=== PATIENT | female | born 2005 | race American Indian/Alaskan Native ===

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

== ENCOUNTER 2025-01-24 05:07 | Emergency (ER) | payer SELFPAY ==
[2025-01-24 05:15] VITALS: BP 139/67; PULSE 85; RESP 16; TEMP 36.4; O2SAT 96; BMI 17.2
--- NOTE | 2025-01-24 05:17 | DI.RAD.S_ITS ---
PROCEDURE: XR CHEST 1V INDICATIONS: cough TECHNIQUE: One view of the chest was acquired. COMPARISON: None. FINDINGS: Surgical changes and devices: None. Lungs and pleura: Lungs are clear. No pleural effusions or pneumothorax. Mediastinum: Mediastinal contours appear normal. Heart size is normal. Bones and chest wall: No suspicious bony lesions. Overlying soft tissues appear unremarkable. IMPRESSION: No consolidations. Dictated by: Gretel John M.D. on 01/24/2025 at 9:22 Approved by: Gretel John M.D. on 01/24/2025 at 9:22
--- NOTE | 2025-01-24 05:17 | ED_ITS ---
HPI - Nausea/Vomiting/Diarrhea General Chief complaint: Nausea/Vomiting/Diarrhea Stated complaint: Vomiting, SOB Time Seen by Provider: 01/24/25 05:08 History of Present Illness HPI Narrative: 19-year-old female without any significant past medical history comes into the ED from home for evaluation of nasal congestion cough and nausea. She states that she was feeling fine and woke up this morning having difficulty breathing through her nose. She adamantly denies any actual chest pain chest tightness or difficulty breathing through her mouth, she states that she feels difficulty breathing only through her nose and that caused her to be concern. She also states that she had episode of nausea but no vomiting. She states that family members at home have similar symptoms, does endorse a small cough that also started with her nasal congestion that started this morning. At time of evaluation patient well-appearing nontoxic she is not complaining of any actual headache visual disturbances chest pain shortness of breath abdominal pain or any other GI/ symptoms time. Patient states that she is currently on her menstrual cycle. Related Data Previous Rx's Medication Instructions Recorded doxycycline hyclate 100 mg capsule 100 mg PO BID 5 days #10 caps 01/24/25 oxymetazoline 0.05 % nasal mist 2 spray intranasal Q12H PRN nasal 01/24/25 (Afrin (oxymetazoline)) congestion 3 days #15 mL Allergies Allergy/AdvReac Type Severity Reaction Status Date / Time No Known Drug Allergies Allergy Verified 08/29/22 15:12 Review of Systems Review of Systems Narrative: General: Denies fever, chills, weight loss HEENT: Positive nasal congestion, Denies headache, eye drainage, eye i rritation, head trauma, sore throat, voice change Cardiovascular: Denies any chest pain, palpitations, tachycardia Respiratory: Denies any shortness of breath, cough, wheeze, stridor GI/: Positive nausea, Denies any abdominal pain,vomiting, diarrhea, bright red blood per rectum, melanotic stools, urinary frequency, urinary retention, dysuria, hematuria MSK: Denies any joint pain, muscle pains, swelling Skin: Denies any rashes, lesions, discoloration Neuro: Denies any headache, lightheadedness, dizziness, fainting, weakness Psych: Denies SI/HI Patient History Social History Smoking Status: Never smoker Exam Narrative Exam Narrative: General: Cooperative, comfortable, well-developed, not in acute distress HEENT: Normocephalic, atraumatic, PERRLA, normal sclera, eyelids normal, Neck: Active full range of motion, atraumatic Chest: Normal to inspection, negative crepitus, no overlying erythema ecchymosis Respiratory: Normal respiratory effort, not in acute respiratory distress, clear to auscultation bilaterally negative cough, wheeze, tachypnea, rhonchi, rales Cardiology: Regular rate rhythm negative gallop, murmur, rubs GI/: Normal to inspection, soft, nonrigid, no tenderness to palpation, exam deferred MSK: Full range of active range of motion of all 4 extremities, atraumatic Skin: No rashes lesions noted Neuro: Alert awake oriented x3, moves all 4 extremities spontaneously, cranial nerves intact, able to answer all questions appropriately follows commands appropriately Psych: Cooperative, negative suicidal or homicidal ideations Initial Vital Signs Initial Vital Signs: Vital Signs Temperature 97.6 F 01/24/25 05:15 Pulse Rate 85 01/24/25 05:15 Respiratory Rate 16 01/24/25 05:15 Blood Pressure 139/67 01/24/25 05:15 Pulse Oximetry 96 01/24/25 05:15 Oxygen Delivery Method Room Air 01/24/25 05:15 Course Orders Ordered: ED Orders 01/24/25 05:17 CXR [XR chest 1V] Stat 01/24/25 05:22 Covid-19 + FLU A/B + RSV - PCR Stat 01/24/25 05:27 Ictotest Urine Stat Urine Culture Stat Urine Microscopic Stat Vital Signs Vital signs: Vital Signs - 8 hr 01/24/25 05:15 Temperature 97.6 F Pulse Rate 85 Respiratory Rate 16 Blood Pressure 139/67 Pulse Oximetry 96 Oxygen Delivery Method Room Air MDM - Nausea/Vomiting/Diarrhea Differential Diagnosis Differential diagnosis: Likely other (COVID, flu, RSV, urinary tract infection, pneumonia, viral syndrome) Lab Data Labs: Lab Results 01/24/25 01/24/25 Range/Units 05:22 05:27 Ur Bilirubin Confirm Negative (Negative) Urine RBC >100/hpf H (0-5/HPF) Urine WBC 1-5/hpf (0-5/HPF) Ur Squamous Epith Cells 5-10 /hpf H (0-5/HPF) Urine Bacteria Moderate (10-30) H (None) Ur Culture Indicated? Specimen cultured Vol Urine Centrifuged 10ml (spun) SARS-CoV-2 (PCR) Negative (Negative) Influenza A (RT-PCR) Flu a negative (NEGATIVE) Influenza B (RT-PCR) Flu b positive H (NEGATIVE) RSV (PCR) Negative (Negative) Point of Care Testing Test Results Negative Urine Dip Bedside Urine Glucose Negative Bedside Urine Bilirubin ++ 2 Bedside Urine Ketone +/- 5 Urine Specific [place] 1.03 Bedside Urine Occult Blood +++ Bedside Urine pH 6 Bedside Urine Protein ++ 100 Bedside Urine Urobilinogen 2+ 4mg Bedside Urine Nitrite - Negative Bedside Urine Leukocytes + 70 Esterase Imaging Data Chest x-ray: Radiologist's Impression: Preliminary read showing early infiltrate MDM Narrative Medical decision making narrative: 19-year-old female without any significant past medical history presents to the emergency department for viral-like syndrome. She states that this morning she woke up feeling nasal congestion, she states that she had difficulty breathing through her nose still feels extremely congested and got concerned. She states that she is not having any difficulty breathing through her mouth, she has no actual chest pain or actual shortness of breath when she breathes through her mouth she feels like she is only having difficulty breathing when she tries to breathe through her nose. Also does not endorse cough associated with this as well as nausea but no vomiting. Patient states that family members at home have had similar symptoms. Patient had urinalysis chest x-ray and respiratory panel performed here in the emergency department. Chest X short early infiltrate, patient not requiring any supplemental oxygen, patient will give 1st dose of antibiotics here sent home with symptomatic relief. She was given strict return precautions she verbalized understanding of this and agrees to being discharged home with outpatient follow up Discharge Plan Departure Patient Disposition: Home Clinical Impression: Pneumonia, Influenza B Instructions: DI for Pneumonia -- Adult Activity Restrictions/Additional Instructions: Please follow up with the primary care doctor Please read the discharge instructions sheet carefully and bring all papers to all doctor follow-up visits, as it may contain information that your doctor may want to see. Disease processes change and evolve, if your symptoms worsen or if you develop any new symptoms that are concerning to you please return for evaluation. Your evaluation today does not show any evidence of any life- threatening/serious illnesses requiring admission to the hospital or surgery. Please follow-up with your doctor for re-evaluation in approximately 1 day. Seek immediate medical attention for any worrisome symptoms. *If you do not have a primary care provider please contact the [facility] Resource line at [phone]. They will ask some questions about your medical history and help get you set up with a doctor in the community. Prescriptions: New doxycycline hyclate 100 mg capsule 100 mg PO BID 5 Days Qty: 10 0RF Afrin (oxymetazoline) 0.05 % mist 2 spray intranasal Q12H PRN (Reason: nasal congestion) 3 Days Qty: 15 0RF Referrals: Shital Marinelli MD [Primary Care Provider] - Stand Alone Forms: Patient Portal/API/Survey
[2025-01-24 05:41] LABS: Ictotest Urine Negative (Negative)
[2025-01-24 05:44] LABS: Urine Volume 10mL (spun)
[2025-01-24 05:46] LABS: Bacteria Urine Moderate (10-30); RBC Urine >100/HPF (0-5/HPF); Squamous Epithelial Cell Urine 5-10 /HPF (0-5/HPF); WBC Urine 1-5/HPF (0-5/HPF)
[2025-01-24 05:48] LABS: Culture Indicated Urine Specimen Cultured
[2025-01-24 06:10] LABS: Influenza A - CEPHEID Flu A NEGATIVE (NEGATIVE); Influenza B - CEPHEID Flu B POSITIVE (NEGATIVE); Respiratory Syncytial Virus Negative (Negative)
[2025-01-24 06:13] LABS: COVID-19 CEPHEID 4-PLEX PCR Negative (Negative)
[2025-01-24] MEDS: DOXYCYCLINE HYCLATE 100 MG TABLET PO (06:21)
== END 2025-01-24 06:30 | disposition home or self-care (01) ==
PROVIDERS: Emergency Provider Student in an Organized Health Care Education/Training Program; PCP Family Medicine
DX: J18.9 Pneumonia, unspecified organism (principal); J10.1 Influenza due to other identified influenza virus with other respiratory manifestations; R11.0 Nausea; R06.00 Dyspnea, unspecified
CPT/HCPCS: 0241U; 71045; 81003; 81015; 81025; 87086; 99283

== ENCOUNTER → 2025-02-11 15:41 | Outpatient (CLI) | payer SELFPAY ==
--- NOTE | 2025-02-11 15:45 | DI.RAD.S_ITS ---
PROCEDURE: XR THORACIC SPINE 2V INDICATIONS: BACK PAIN TECHNIQUE: 2 views of the thoracic spine were acquired. COMPARISON: None. FINDINGS: Bones: No fractures or dislocations. No suspicious bony lesions. 12 pairs of ribs are noted, and appear intact where visualized. Soft tissues: No paravertebral stripe thickening. IMPRESSION: No acute bony abnormality. No significant degenerative change. Dictated by: Alexx Gonzalez M.D. on 02/11/2025 at 16:50 Approved by: Alexx Gonzalez M.D. on 02/11/2025 at 16:50
--- NOTE | 2025-02-11 15:45 | DI.RAD.S_ITS ---
PROCEDURE: XR LUMBAR SPINE 2-3V INDICATIONS: BACK PAIN TECHNIQUE: 3 views of the lumbar spine were acquired. COMPARISON: None. FINDINGS: Bones: 5 [id number] vertebrae are present. There is normal bony alignment. No vertebral body compression fractures. No suspicious bony lesions. Soft tissues: Overlying bowel gas pattern is normal. No suspicious soft tissue calcifications. IMPRESSION: No acute bony abnormality. No significant degenerative change. Dictated by: Alexx Gonzalez M.D. on 02/11/2025 at 16:49 Approved by: Alexx Gonzalez M.D. on 02/11/2025 at 16:50
== END ==
PROVIDERS: Referring Provider Nurse Practitioner Family; Visit Provider Nurse Practitioner Family
DX: M54.9 Dorsalgia, unspecified (principal)
CPT/HCPCS: 72070; 72100